=== PATIENT | male | born 1960 ===

== ENCOUNTER 2018-07-15 10:20 | Inpatient (IN) ==
[~2018-07-15 10:20] MED LIST: Adenosine 90 MG/30 ML MLS IV ONE
[2018-07-15] MEDS ORDERED: Aspirin 81 MG TAB.CHEW PO ONE (10:30)
--- NOTE | 2018-07-15 10:32 | Emergency Department Note ---
Disposition Clinical Impression: Palpitations, NSTEMI (non-ST elevated myocardial infarction) Chest pain Qualifiers: Chest pain type: unspecified Qualified Code(s): R07.9 - Chest pain, unspecified Disposition: Admitted As Inpatient Condition: Fair Referrals: Alexa Chery APN [Primary Care Provider] - Time of Disposition: 13:17 Arrhythmia/Palpitations HPI - General Chief Complaint: ED Arrhythmia/Palpitations Stated Complaint: heart palpatation Time Seen by Provider: 07/15/18 10:29 Source: patient, EMS Mode of arrival: EMS Limitations: no limitations Nursing Notes Reviewed: Yes Vital Signs Reviewed: Yes - History of Present Illness HPI Narrative: Patient is a 57-year-old male presenting with chest pain. Patient with known history of hypertension, hyperlipidemia, SVT, currently on propranolol. Patient was seen in the emergency department yesterday found to be in SVT, received a dose of adenosine and converted to normal sinus rhythm. Patient was discharged home. After his arrival home, he began to have pain in the middle of his chest with radiation into the right jaw and arm. He describes the pain in his chest to be a tightness. He also has associated shortness of breath with this. Patient notes that the pain has been constant since last night. He was unable to sleep as he was up all night with palpitations as well, took his pulse and it was 160 bpm. Pain continued into this morning, he did call EMS, states that just prior to arrival of EMS, his palpitations stopped. Per EMS report, patient was found to be in normal sinus rhythm on their arrival. He was given 1 nitroglycerin for the pain in his chest which has continued. He states that the pain slightly decreased. He generally has palpitations and mild discomfort when he goes into SVT, however he states that this pain is different. No history of left heart catheter or PA. No nausea, vomiting, lightheadedness or dizziness. No abdominal pain. - Related Data Home Medications Medication Instructions Recorded Confirmed Propranolol HCl 40 mg PO DAILY 07/18/17 07/18/17 Tramadol HCl [Ultram] 50 mg PO QID PRN 07/18/17 07/18/17 Previous Rx's Medication Instructions Recorded OxyCODONE Immed Rel [Roxicodone 5 5 mg PO Q6HR PRN 7 Days #30 tablet 07/19/17 MG] Azithromycin [Azithromycin 6-Tab 250 mg PO PER PKG DI #6 tab 02/07/18 Pack] GuaiFENesin/Dextromethorphan 5 ml PO Q6HR PRN #120 syrup 02/07/18 [Robitussin/DM] Allergies Allergy/AdvReac Type Severity Reaction Status Date / Time Amoxicillin Allergy Rash Verified 02/07/18 17:19 clindamycin Allergy Hives Verified 02/07/18 17:19 Penicillins Allergy Hives Verified 02/07/18 17:19 prednisone Allergy Itching Verified 02/07/18 17:19 All systems ED: reviewed and negative except as stated. Review of Systems: As Per HPI Constitutional: Denies: fever, chills, weakness, weight change ENT ED: Denies: ear pain, throat pain, dental pain, hearing loss, epistaxis, congestion, dysphagia Cardiovascular: Reports: chest pain, palpitations, dyspnea on exertion. Denies: syncope Respiratory: Denies: cough, dyspnea, wheezes Gastrointestinal: Denies: abdominal pain, nausea, vomiting Genitourinary: Denies: urgency, dysuria Musculoskeletal: Denies: back pain Integumentary: Denies: rash Neurological: Denies: headache, weakness, confusion Endocrine: Denies: fatigue Past Medical History - Past Medical History Attestation: Yes The following information was validated with the patient. Source: patient Medical history: Reports: hyperlipidemia, hypertension, SVT, other Psychiatric history: Reports: no psych history - Social History Smoking Status: Current every day smoker Smokeless Tobacco Status: No Alcohol use: Reports: none Drug use: Reports: none Physical Exam - General Limitations: no limitations General appearance: alert, in no apparent distress - Head Head exam: atraumatic, normocephalic, normal inspection - Eye Eye exam: Present: normal appearance, PERRL, EOMI - ENT ENT exam: normal exam, normal oropharynx, mucous membranes moist - Neck Neck exam: Present: normal inspection, full ROM, trachea midline - Chest Chest inspection: Present: normal inspection, symmetric chest wall rise - Respiratory Respiratory exam: Present: normal lung sounds bilaterally - Cardiovascular Cardiovascular exam: Present: regular rate, normal rhythm, normal heart sounds - Abdominal Exam Abdominal exam: Present: soft, Non-Tender. Absent: tenderness, distention, guarding, rebound, rigidity - Extremities Exam Extremities exam: Present: normal inspection, full ROM. Absent: tenderness, pedal edema - Expanded Lower Extremity Exam Neurovascular/Tendon exam: Absent: motor deficit, sensory deficit, tendon deficit - Back Exam Back exam: Present: normal inspection, full ROM. Absent: tenderness - Neurological Exam Neurological exam: Present: alert, oriented X3, CN II-XII intact - Psychiatric Psychiatric exam: Present: normal affect - Skin Skin exam: Present: warm. Absent: rash Course Vital Signs Temperature 98.1 F 07/15/18 10:22 Pulse Rate 71 07/15/18 10:22 Respiratory Rate 16 07/15/18 10:22 Blood Pressure 114/70 07/15/18 10:22 O2 Sat by Pulse Oximetry 98 07/15/18 10:22 Temperature 98.1 F 07/15/18 10:22 Pulse Rate 77 07/15/18 13:12 Respiratory Rate 16 07/15/18 13:12 Blood Pressure 109/64 07/15/18 13:12 O2 Sat by Pulse Oximetry 99 07/15/18 13:12 Oxygen Delivery Oxygen Delivery Room Air Arrhythmia/Palpitations - [facility] Narrative Medical decision making narrative: Patient is a 57-year-old male presenting with chest pain or palpitations. On arrival, patient is in normal sinus rhythm, no acute distress, converted prior to arrival. Was given fluids prior to arrival. Currently patient has been given 1 nitroglycerin bring his pain from a 6 down to a 3. EKG was performed at time of arrival which was a ventricular rate of 71, with new T-wave inversion and 2, 3, aVF as well as V5 and V6. Was called the troponin was minimally elevated at 22, without this time that cardiology consult was called at. At 1231, patient states that he started to have palpitations with repeat EKG performed which showed SVT with ventricular rate of 169. Patient states that he coughed, and converted himself, when I went back into the room, regular rhythm at 86 bpm. I spoke with Dr. Elaine Guzman at 1245, patient will be started on low-dose heparin, [place] time, patient had artery received aspirin, patient was also started on nitroglycerin drip. Patient has remained stable. Further blood work is unremarkable. Patient will be admitted for NSTEMI. Nurse practitioner, for Dr. Guzman, came down to evaluate the patient, left heart catheter will be performed today. - Medical Records Medical records reviewed: Yes I reviewed the patient's medical records. - Lab Data Lab results reviewed: Yes I reviewed the patient's lab results. Result diagrams: 07/15/18 12:55 07/15/18 11:01 Lab Results 07/15/18 07/15/18 07/15/18 Range/Units 11:01 11:01 12:55 WBC 13.2 H 13.5 H (4.3-11.1) K/mcL RBC 3.84 L 3.82 L (4.19-5.50) M/mcL Hgb 12.4 L D 12.1 L (12.9-16.9) g/dL Hct 36.3 L 35.9 L (37.5-50.1) % MCV 94.5 94.0 (83.0-100.0) fL MCH 32.3 31.7 (28.0-33.3) pg MCHC 34.2 33.7 (31.6-35.5) g/dL RDW 13.1 13.0 (11.5-14.5) % Plt Count 159 147 (140-400) K/mcL MPV 10.0 10.2 (9.4-12.4) fL Immature Gran % 0.3 (0-4) % Seg Neutrophils % 75.9 % Lymphocytes % 15.9 % Monocytes % 7.6 % Eosinophils % 0.1 % Basophils % 0.2 % Neutrophils # 10.1 H (1.6-8.9) K/mcL Lymphocytes # 2.1 (0.6-4.6) K/mcL Monocytes # 1.0 (0.0-1.3) K/mcL Eosinophils # 0.0 (0.0-0.6) K/mcL Basophils # 0.0 (0.0-0.2) K/mcL Sodium 138 (136-145) mEq/L Potassium 4.3 (3.5-5.1) mEq/L Chloride 105 (98-107) mEq/L Carbon Dioxide 29 (23-29) mEq/L BUN 13 (6-20) mg/dL Creatinine 0.80 (0.70-1.30) mg/dL Est GFR ( Amer) > 60 (> 60) Est GFR (Non-Af Amer) > 60 (> 60) BUN/Creatinine Ratio 16 (6-26) Glucose 109 H (70-105) mg/dL Calculated Osmolality 287 (280-300) Calcium 8.9 (8.6-10.3) mg/dL Troponin I 22.99 H* (< 0.04) ng/mL - Radiology Data Radiology results reviewed: Yes I reviewed the patient's radiology results. Chest X-Ray 07/15/18 10:30 IMPRESSION: 1. Mild prominence of the pulmonary vasculature suggestive of interstitial edema. D/ / Marilyn Díaz MD / Marilyn Díaz MD Interpreting Provider: Marilyn Díaz MD - EKG Data EKG attestation: Yes I reviewed and interpreted this EKG. EKG results narrative: EKG performed at 04/01 ventricular rate of 71, regular rhythm, normal axis, no ST segment elevation or depression, there is T wave inversion in leads 2, 3, aVF, V5 and V6, T-wave inversion is new since EKG that was performed on 07/14/2018. EKG performed at 1231 ventricular rate of 169, regular rhythm, normal axis, narrow complex, appears to be SVT. When compared to previous EKG there are: changes noted S.Radha.Mickey - Nandini Situation: Demographics, MOA Background: Presenting Complaint, Relevant PMH, Meds, & Allergies Assessment: Vital Signs, Course and respsone to treatment, Exam Concerns, Patient/Family Expectation, Pertinant Lab Results, Outstanding Labs Recommendation: Barrier(s) to disposition, Recommendation based on pending studies, treatments, or consults Nandini Report Given to: Dr. Dwayne Delatorre Repor Time: 13:17 (accepted) Heart Score - Score History: Moderately Suspicious EKG: Non Specific repolarisation Disturbance Age: 45-65 Risk Factors: 1-2 risk factors
--- NOTE | 2018-07-15 10:36 | Emergency Department Note ---
Disposition Clinical Impression: Chest pain, Palpitations, NSTEMI (non-ST elevated myocardial infarction) Disposition: Admitted As Inpatient Condition: Fair General Adult HPI - General Chief complaint: ED Arrhythmia/Palpitations Stated complaint: heart palpatation Time Seen by Provider: 07/15/18 10:29 Source: patient, EMS Mode of arrival: EMS Limitations: no limitations - History of Present Illness Pain Scale: 10 - Related Data Home Medications Medication Instructions Recorded Confirmed Propranolol HCl 40 mg PO DAILY 07/18/17 07/18/17 Tramadol HCl [Ultram] 50 mg PO QID PRN 07/18/17 07/18/17 Previous Rx's Medication Instructions Recorded OxyCODONE Immed Rel [Roxicodone 5 5 mg PO Q6HR PRN 7 Days #30 tablet 07/19/17 MG] Azithromycin [Azithromycin 6-Tab 250 mg PO PER PKG DI #6 tab 02/07/18 Pack] GuaiFENesin/Dextromethorphan 5 ml PO Q6HR PRN #120 syrup 02/07/18 [Robitussin/DM] Allergies Allergy/AdvReac Type Severity Reaction Status Date / Time Amoxicillin Allergy Rash Verified 02/07/18 17:19 clindamycin Allergy Hives Verified 02/07/18 17:19 Penicillins Allergy Hives Verified 02/07/18 17:19 prednisone Allergy Itching Verified 02/07/18 17:19 Past Medical History - Past Medical History Medical history: Reports: SVT, other Psychiatric history: Reports: no psych history - Social History Smoking Status: Current every day smoker Smokeless Tobacco Status: No Alcohol use: Reports: none Drug use: Reports: none Physical Exam - General Limitations: no limitations General appearance: alert, in no apparent distress Course Vital Signs Temperature 98.1 F 07/15/18 10:22 Pulse Rate 71 07/15/18 10:22 Respiratory Rate 16 07/15/18 10:22 Blood Pressure 114/70 07/15/18 10:22 O2 Sat by Pulse Oximetry 98 07/15/18 10:22 Temperature 98.1 F 07/15/18 10:22 Pulse Rate 79 07/15/18 13:47 Respiratory Rate 18 07/15/18 13:47 Blood Pressure 121/69 07/15/18 13:47 O2 Sat by Pulse Oximetry 98 07/15/18 13:47 Oxygen Delivery Oxygen Delivery Room Air Medical Decision Making - Lab Data Result diagrams: 07/15/18 12:55 07/15/18 11:01 Lab Results 07/15/18 07/15/18 07/15/18 Range/Units 11:01 11:01 12:55 WBC 13.2 H 13.5 H (4.3-11.1) K/mcL RBC 3.84 L 3.82 L (4.19-5.50) M/mcL Hgb 12.4 L D 12.1 L (12.9-16.9) g/dL Hct 36.3 L 35.9 L (37.5-50.1) % MCV 94.5 94.0 (83.0-100.0) fL MCH 32.3 31.7 (28.0-33.3) pg MCHC 34.2 33.7 (31.6-35.5) g/dL RDW 13.1 13.0 (11.5-14.5) % Plt Count 159 147 (140-400) K/mcL MPV 10.0 10.2 (9.4-12.4) fL Immature Gran % 0.3 (0-4) % Seg Neutrophils % 75.9 % Lymphocytes % 15.9 % Monocytes % 7.6 % Eosinophils % 0.1 % Basophils % 0.2 % Neutrophils # 10.1 H (1.6-8.9) K/mcL Lymphocytes # 2.1 (0.6-4.6) K/mcL Monocytes # 1.0 (0.0-1.3) K/mcL Eosinophils # 0.0 (0.0-0.6) K/mcL Basophils # 0.0 (0.0-0.2) K/mcL PT (9.4-12.1) Seconds INR Heparin Anti-Xa, Unfract (0.30-0.70) IU/mL Sodium 138 (136-145) mEq/L Potassium 4.3 (3.5-5.1) mEq/L Chloride 105 (98-107) mEq/L Carbon Dioxide 29 (23-29) mEq/L BUN 13 (6-20) mg/dL Creatinine 0.80 (0.70-1.30) mg/dL Est GFR ( Amer) > 60 (> 60) Est GFR (Non-Af Amer) > 60 (> 60) BUN/Creatinine Ratio 16 (6-26) Glucose 109 H (70-105) mg/dL Calculated Osmolality 287 (280-300) Calcium 8.9 (8.6-10.3) mg/dL Magnesium 2.1 (1.6-2.6) mg/dL Troponin I 22.99 H* (< 0.04) ng/mL 07/15/18 Range/Units 12:55 WBC (4.3-11.1) K/mcL RBC (4.19-5.50) M/mcL Hgb (12.9-16.9) g/dL Hct (37.5-50.1) % MCV (83.0-100.0) fL MCH (28.0-33.3) pg MCHC (31.6-35.5) g/dL RDW (11.5-14.5) % Plt Count (140-400) K/mcL MPV (9.4-12.4) fL Immature Gran % (0-4) % Seg Neutrophils % % Lymphocytes % % Monocytes % % Eosinophils % % Basophils % % Neutrophils # (1.6-8.9) K/mcL Lymphocytes # (0.6-4.6) K/mcL Monocytes # (0.0-1.3) K/mcL Eosinophils # (0.0-0.6) K/mcL Basophils # (0.0-0.2) K/mcL PT 12.2 H (9.4-12.1) Seconds INR 1.1 Heparin Anti-Xa, Unfract 0.00 L (0.30-0.70) IU/mL Sodium (136-145) mEq/L Potassium (3.5-5.1) mEq/L Chloride (98-107) mEq/L Carbon Dioxide (23-29) mEq/L BUN (6-20) mg/dL Creatinine (0.70-1.30) mg/dL Est GFR ( Amer) (> 60) Est GFR (Non-Af Amer) (> 60) BUN/Creatinine Ratio (6-26) Glucose (70-105) mg/dL Calculated Osmolality (280-300) Calcium (8.6-10.3) mg/dL Magnesium (1.6-2.6) mg/dL Troponin I (< 0.04) ng/mL Critical Care Time Critical Care Time: Yes Total Critical Care Time: 40 Attestation: Critical care performed: Time is exclusive of separately billable procedures. Time includes: direct patient care, patient reassessment, coordination of patient care, interpretation of data (laboratory data, radiology data, and respiratory data), review of patient's medical records, medical consultation and documentation of patient care. Procedures included in critical care time: Procedures excluded from critical care time: Attestation Statement - Attestation Attestation: I examined this patient and my medical decision-making was reviewed with the [facility] Physician. I agree with the documented findings, disposition and treatment plan as described except to the extent set forth below. Patient presents to the emergency department with a chief complaint of chest and jaw discomfort. Patient began expressing discomfort last night. It was accomp anied by palpitations and a high heart rate. He states he sat on the side of the bed all night and discomfort. His heart rate was in the 160s. Patient states he converted out of SVT just prior to EMS arriving this morning. Patient was seen here yesterday for the palpitations, but he was not having chest discomfort at that time. He has an appointment to see Dr. Rick Guzman. Patient states he has a history of SVT over the past 10 years. It is getting worse. On examination he is in no acute distress. His heart regular rate and rhythm. Heart rate in the 70s. Plan. Cardiac workup. His EKG shows new inferior and lateral T-wave inversions. Aspirin and admission for further cardiac workup. Troponin is 22. Patient was discussed with cardiology. He received aspirin, heparin, but went up. Patient evaluated in the department cardiology who will take him to [employer] [facility]. Patient has had 2 episodes of SVT that have Chest X-Ray 07/15/18 10:30 IMPRESSION: 1. Mild prominence of the pulmonary vasculature suggestive of interstitial edema. D/ / 07/15/2018 11:21:06 Marilyn Díaz MD / michael Interpreting Provider: Marilyn Díaz MD spontaneously converted.
[2018-07-15 11:14] LABS: Basophils % 0.2 %; Eosinophils % 0.1 %; Hematocrit 36.3 % (37.5-50.1); Hemoglobin 12.4 g/dL (12.9-16.9); Immature Granulocytes % 0.3 % (0-4); Lymphocytes # 2.1 K/mcL (0.6-4.6); Lymphocytes % 15.9 %; Mean Corpuscular HGB Conc 34.2 g/dL (31.6-35.5); Mean Corpuscular Hemoglobin 32.3 pg (28.0-33.3); Mean Corpuscular Volume 94.5 fL (83.0-100.0); Monocytes % 7.6 %; Neutrophils # 10.1 K/mcL (1.6-8.9); Platelet Count 159 K/mcL (140-400); Red Blood Count 3.84 M/mcL (4.19-5.50); Red Cell Distribution Width 13.1 % (11.5-14.5); Segmented Neutrophils % 75.9 %
[2018-07-15 11:34] LABS: BUN/Creatinine Ratio 16 (6-26); Blood Urea Nitrogen 13 mg/dL (6-20); Calcium 8.9 mg/dL (8.6-10.3); Carbon Dioxide 29 mEq/L (23-29); Chloride 105 mEq/L (98-107); Glucose 109 mg/dL (70-105); Osmolality,Calculated 287 (280-300); Potassium 4.3 mEq/L (3.5-5.1); Sodium 138 mEq/L (136-145); eGFR For Non-African Americans > 60 (> 60)
[2018-07-15 11:44] LABS: Troponin I 22.99 ng/mL (< 0.04)
[2018-07-15] MEDS ORDERED: Nitroglycerin 25 MG/250 ML INFUS..BTL IVC SCH (12:30)
[2018-07-15] MEDS ORDERED: *HR* Heparin 5,000 UNIT/ML VIAL IVP PRN ×2 (12:48)
[2018-07-15] MEDS ORDERED: *HR* Ticagrelor 90 MG TABLET PO ONE (12:48)
[2018-07-15] MEDS ORDERED: *HR* Heparin 5,000 UNIT/ML VIAL IVP ONE (12:48)
[2018-07-15] MEDS ORDERED: Heparin 25,000 UNIT/500 ML D5W 25,000 UNIT/500 ML BAG IVC SCH (13:00)
[2018-07-15 13:08] LABS: Hematocrit 35.9 % (37.5-50.1); Hemoglobin 12.1 g/dL (12.9-16.9); Mean Corpuscular HGB Conc 33.7 g/dL (31.6-35.5); Mean Corpuscular Hemoglobin 31.7 pg (28.0-33.3); Mean Platelet Volume 10.2 fL (9.4-12.4); Platelet Count 147 K/mcL (140-400); Red Blood Count 3.82 M/mcL (4.19-5.50)
--- NOTE | 2018-07-15 13:14 | Cardiology History & Physical ---
Addendum entered and electronically signed by Elaine Guzman MD 07/15/18 13:29: I have personally performed a face to face evaluation on this patient. I have reviewed and agree with the care plan. History and Exam by me shows: Pt with ongoing chest discomfort and elevated troponin to 22.99. Will proceed with emergent LHC and possible PCI. All risks/benefits discussed with patient by me. Agreeable to proceed. 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 Original Note: Date of Encounter: 07/15/18 Time of Encounter: 13:09 Assessment and Plan (1) NSTEMI (non-ST elevated myocardial infarction) Current Visit: Yes Status: Acute Constant chest pain since yesterday radiating to neck/right jaw/left hand numbness associated with diaphoresis and dyspnea. Troponin 22.99. CP currently 09/13. ECG on presentation SR with inferior and lateral ischemic changes. Brilinta load given. Started on heparin and nitro gtt. Add Statin and BB. TTE to evaluate structure and function. Recommend LHC. R/B/A discussed. Pt agrees to proceed. LHC today. Discussed and reviewed with Dr. Elaine Guzman. The assessment and plan as outlined above was discussed with the patient and/or family members who expressed understanding and agreement. All questions were answered. 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 Presented to office then ED 07/14 in SVT, was d/c'd home after it broke. Presented today with NSTEMI as above. Went into SVT, broke with coughing. Will switch Propanolol to Metoprolol. Will await further recs tomorrow from EP, Dr. Rick Guzman. History of Present Illness Chief complaint: Chest pain, NSTEMI, SVT/AVNRT HPI: Mr. Renae is a 57 year old male with PMH of HTN, prior tobacco abuse present to ED for chest pain. He was seen in the ED yesterday for SVT. It broke and he was d/c'd home. He states after he got home he began having chest pain that has been constant, radiating to his neck and right jaw, right hand numbness, asso ciated dyspnea and mild diaphoresis. Once he arrived ECG was SR. He began having palpitations and was in SVT that broke with coughing. Troponin 22.99. Admitted to cardiology service as NSTEMI. Pt reports current chest pain/jaw pain is 4/10. Lying flat in no distress. 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 Otherwise, rare PACs and PVCs. No significant bradycardia or pauses Past Med Surg Social Fam HX - Past Medical History Medical history: hyperlipidemia, hypertension, SVT, other Additional medical history: neuropathy Psychiatric history: no psych history - Past Surgical History Additional surgical history: neck - Social History Smoking Status: Current every day smoker Smokeless Tobacco Status: No Alcohol use: none Drug use: none Medications and Allergies Propranolol HCl 40 mg PO DAILY 07/18/17 [History] Tramadol HCl [Ultram] 50 mg PO QID PRN 07/18/17 [History] OxyCODONE Immed Rel [Roxicodone 5 MG] 5 mg PO Q6HR PRN 7 Days #30 tablet 07/19/17 [Rx] Azithromycin [Azithromycin 6-Tab Pack] 250 mg PO PER PKG DI #6 tab 02/07/18 [Rx] GuaiFENesin/Dextromethorphan [Robitussin/DM] 5 ml PO Q6HR PRN #120 syrup 02/07/18 [Rx] Allergy/AdvReac Type Severity Reaction Status Date / Time Amoxicillin Allergy Rash Verified 02/07/18 17:19 clindamycin Allergy Hives Verified 02/07/18 17:19 Penicillins Allergy Hives Verified 02/07/18 17:19 prednisone Allergy Itching Verified 02/07/18 17:19 All Systems Review: The remainder of the systems were reviewed and are negative - Cardiovascular Cardiovascular: as per HPI, chest pain at rest, chest pain with exertion, diaphoresis, dyspnea at rest, dyspnea on exertion, radiating jaw, neck or arm pain, palpitations - Respiratory Respiratory: dyspnea Physical Examination Vital Signs, Last 4 Hours Temp Pulse Resp BP Pulse Ox 07/15/18 12:34 82 18 115/92 96 07/15/18 11:45 68 15 117/68 96 07/15/18 10:22 98.1 F 71 16 114/70 98 Vital Signs Temp Pulse Resp BP Pulse Ox 07/15/18 13:12 77 16 109/64 99 07/15/18 12:34 82 18 115/92 96 07/15/18 11:45 68 15 117/68 96 07/15/18 10:22 98.1 F 71 16 114/70 98 Intake and Output 07/14/18 07/15/18 07/15/18 23:59 07:59 15:59 Other: Weight 93.894 kg Patient Weight 07/15/18 23:59 Weight 93.894 kg General: Conversant, No Apparent Distress HEENT: Atraumatic, Normocephaly, Mucus Membranes Moist Neck: No JVD, Normal carotid pulses Cardiac: Reg Rate and Rhythm, Normal S1 and S2, No Murmur Lungs: Normal Breath Sounds, No Wheeze, Rales, Rhonchi Neuro: Alert and responsive, No focal deficits noted Abdomen: Soft, Non-Tender Skin: No rashes noted on visualized skin Musculoskeletal: No Chest Wall Tenderness Extremities: No Clubbing, No Cyanosis, No Edema, Normal Pulses Results 07/15/18 11:01 07/15/18 11:01 Lab Results 07/15/18 07/15/18 11:01 11:01 WBC 13.2 H Hgb 12.4 L D Hct 36.3 L Plt Count 159 Sodium 138 Potassium 4.3 Chloride 105 Carbon Dioxide 29 BUN 13 Creatinine 0.80 Glucose 109 H Calcium 8.9 Troponin I 22.99 H* Short CBC 07/15/18 07/15/18 Range/Units 12:55 11:01 WBC 13.5 H 13.2 H (4.3-11.1) K/mcL Hgb 12.1 L 12.4 L D (12.9-16.9) g/dL Hct 35.9 L 36.3 L (37.5-50.1) % Plt Count 147 159 (140-400) K/mcL Neutrophils # 10.1 H (1.6-8.9) K/mcL BMP 07/15/18 Range/Units 11:01 Sodium 138 (136-145) mEq/L Potassium 4.3 (3.5-5.1) mEq/L Chloride 105 (98-107) mEq/L Carbon Dioxide 29 (23-29) mEq/L BUN 13 (6-20) mg/dL Creatinine 0.80 (0.70-1.30) mg/dL Glucose 109 H (70-105) mg/dL Calcium 8.9 (8.6-10.3) mg/dL Cardiac Enzymes 07/15/18 Range/Units 11:01 Troponin I 22.99 H* (< 0.04) ng/mL Impressions Chest X-Ray 07/15/18 10:30 IMPRESSION: 1. Mild prominence of the pulmonary vasculature suggestive of interstitial edema. D/ / 07/15/2018 11:21:06 Marilyn Díaz MD / bcarter Interpreting Provider: Marilyn Díaz MD Active Medications Heparin Sodium (Porcine) (Heparin) 4,000 unit IVP Q6HR PRN PRN Reason: SEE COMMENTS Stop: 01/14/19 12:49 Heparin Sodium (Porcine) (Heparin) 2,000 unit IVP Q6H PRN PRN Reason: SEE COMMENTS Stop: 01/14/19 12:49 Nitroglycerin (Nitroglycerin Premix 25 Mg/250 Ml) 25 mg in 250 mls @ 3 mls/hr IVC .[facility]H [facility]; Protocol Stop: 01/14/19 12:31 Heparin Sodium/Dextrose (Heparin 25,000 Unit/500 Ml D5w) 25,000 unit in 500 mls @ 22.535 mls/hr IVC .[id number] [facility]; Protocol Stop: 01/14/19 13:01 - EKG Interpretation EKG results cardiology: personally reviewed (Initial SR, then SVT/AVNRT rate 169)
[2018-07-15 13:16] LABS: INR 1.1; Prothrombin Time 12.2 Seconds (9.4-12.1)
[2018-07-15] MEDS ORDERED: Heparin 1,000 UNITS/500 mL 500 ML ONE (13:22)
[2018-07-15] MEDS ORDERED: *HR* Heparin 10,000 UNIT/10 ML VIAL ONE (13:22)
[2018-07-15] MEDS ORDERED: Nitroglycerin 1,000 MCG/10 ML VIAL IV ONE (13:22)
[2018-07-15] MEDS ORDERED: 0.9 % Sodium Chloride 1,000 ML ONE (13:22)
[2018-07-15] MEDS ORDERED: ISOVUE-370 200 ML INFUS..BTL ONE ×2 (13:22→15:25)
[2018-07-15] MEDS ORDERED: Acetaminophen 325 MG TABLET PO PRN (13:29)
--- NOTE | 2018-07-15 13:33 | Pre-Sedation Evaluation ---
Pre-sedation evaluation - Pre-sedation checklist Date of procedure: 07/15/18 Procedure: [facility] Recent Vitals: Last Vital Signs Temp 98.1 F 07/15/18 10:22 Pulse 77 07/15/18 13:12 Resp 16 07/15/18 13:12 BP 109/64 07/15/18 13:12 Pulse Ox 99 07/15/18 13:12 H&P (including ROS) documented in medical record: Yes Previous reaction to sedatives/anesthetics: No Dietary Status: No solid food in preceding 4 hrs and no liquid in preceding 2 hrs Airway Assessment: Patient can open mouth completely, TMJ function normal, Micrognathia (under-bite, receding chin) absent, Neck with adequate range of motion Dentition: No loose teeth or bridges Possible difficult airway: No ASA Classification *see protocol: CLASS II-Mild systemic disease Cardiac Registry (Cardio Only) - Functional Capacity Functional Capacity: < 4 METS - Clincal Frailty Scale Clinical Frailty Scale: Managing Well
[2018-07-15] MEDS ORDERED: Naloxone 0.4 MG/ML INJ IVP PRN (13:44)
[2018-07-15] MEDS ORDERED: traMADol 50 MG TABLET PO PRN (13:44)
[2018-07-15] MEDS ORDERED: Dextrose Gel 15 GM/37.5 ML TUBE PO PRN ×2 (13:46)
[2018-07-15] MEDS ORDERED: D5% in Water 1,000 ML IVC PRN (13:46)
[2018-07-15] MEDS ORDERED: *HR* Dextrose 50 % in Water (Syg) 50 ML SYRINGE IVP PRN (13:46)
[2018-07-15 13:49] LABS: Magnesium 2.1 mg/dL (1.6-2.6)
[2018-07-15] MEDS ORDERED: 0.9 % Sodium Chloride 500 ML ONE (13:53)
[2018-07-15] MEDS ORDERED: *HR* FentaNYL (PF) 100 MCG/2 ML VIAL ONE (13:53)
[2018-07-15] MEDS ORDERED: *HR* Midazolam HCl 2 MG/2 ML VIAL ONE ×2 (13:53→14:32)
[2018-07-15 14:03] LABS: Chol/HDL Ratio 3.7 (0-4.9); Cholesterol 153 mg/dL (< 200); HDL Cholesterol 41 mg/dL (40-59); LDL Cholesterol,Calculated 104 mg/dL (0-99); Triglycerides 41 mg/dL (< 150)
[2018-07-15] MEDS ORDERED: *HR* Bivalirudin 250 MG VIAL IVC ONE ×2 (14:18→14:53)
--- NOTE | 2018-07-15 14:32 | Internal Med History&Physical ---
Date of Encounter: 07/15/18 Time of Encounter: 14:28 Internal Medicine - H&P: HPI Chief complaint: chest and jaw discomfort Admitted From: Home Plans for Post Hospital Care: Home History of present illness: Mr. Renae is a 57 year old male PMH of SVT. Patient reports yesterday morning he started having palpitations and decided to come to the ED and ws given some medications and the palpitations resolved and he went home. But he reports that after leaving the hospital, he go home at around 4pm yesterday and started having restro-sternal pressure like10/10 chest pain, radiating to his jaw and left side of the neck, he also reports shortness of breath associated with the chest pain. He reports not being able to sleep overnight and decided to come to the ED today morning. He denies nausea, vomiting, but reports palpitation. In the ED patient was found to have NSTEMI. Past Med Surg Social Fam HX - Past Medical History Medical history: hyperlipidemia, hypertension, SVT, other Additional medical history: neuropathy Psychiatric history: no psych history - Past Surgical History Additional surgical history: neck - Social History Smoking Status: Current every day smoker Smokeless Tobacco Status: No Alcohol use: none Drug use: none Internal Medicine - H&P: Meds Propranolol HCl 40 mg PO DAILY 07/18/17 [History] Tramadol HCl [Ultram] 50 mg PO QID PRN 07/18/17 [History] OxyCODONE Immed Rel [Roxicodone 5 MG] 5 mg PO Q6HR PRN 7 Days #30 tablet 07/19/17 [Rx] Azithromycin [Azithromycin 6-Tab Pack] 250 mg PO PER PKG DI #6 tab 02/07/18 [Rx] GuaiFENesin/Dextromethorphan [Robitussin/DM] 5 ml PO Q6HR PRN #120 syrup 02/07/18 [Rx] Allergy/AdvReac Type Severity Reaction Status Date / Time Amoxicillin Allergy Rash Verified 02/07/18 17:19 clindamycin Allergy Hives Verified 02/07/18 17:19 Penicillins Allergy Hives Verified 02/07/18 17:19 prednisone Allergy Itching Verified 02/07/18 17:19 All Systems PM: A 10-system review of systems was performed and is negative for pertinent findings except as documented above in the HPI. - Constitutional Constitutional: no chills, no fever(s), no weakness - EENT Eyes: no change in vision, no irritation Nose, mouth and throat: no change in voice - Cardiovascular Cardiovascular ROS IM: chest pain, dyspnea, palpitations, no lightheadedness, no paroxysmal nocturnal dyspnea - Respiratory Respiratory: no cough, no dyspnea, no change in phlegm color - Gastrointestinal Gastrointestinal: no abdominal pain, no nausea, no vomiting - Genitourinary Genitourinary ROS male: no dysuria, no nocturia, no urinary frequency, no urinary incontinence, no urinary urgency - Musculoskeletal Musculoskeletal ROS IM: no muscle cramps - Integumentary Integumentary IM: no sores - Neurological Neurological ROS: no headache(s) - Psychiatric Psychiatric: no anxiety, no irritability - Endocrine Endocrine IM: no cold intolerance, no excessive sweating - Hematologic/Lymphatic Hematologic/Lymphatic: no lymphadenopathy - Allergic/Immunologic Allergic/Immunologic: no GI upset with certain foods - Constitutional Vitals: Temp Pulse Resp BP Pulse Ox 98.1 F 79 18 121/69 98 07/15/18 10:22 07/15/18 13:47 07/15/18 13:47 07/15/18 13:47 07/15/18 13:47 Exam: Vitals: Reviewed General: Alert and oriented x4. In mild distress due to chest pain Skin: Normal color, no rash, no lesions. HEENT: EOM, pupils equal, round and reactive. Cardiovascular: RRR, normal S1 & S2, no rubs, murmurs or gallops. Lungs: CTA b/l, no wheezes or crackles. Abdomen: Obese, Soft, non-tender, no rigidity. Extremities: No deformity, no edema or tenderness, no joint swelling or clubbing. Neurological: Normal cognition and motor skills. Rest of the physical exam is non contributory Internal Med - H&P Results - Labs CBC & Chem 7: 07/15/18 12:55 07/15/18 11:01 Labs: Short CBC 07/15/18 07/15/18 Range/Units 11:01 12:55 WBC 13.2 H 13.5 H (4.3-11.1) K/mcL Hgb 12.4 L D 12.1 L (12.9-16.9) g/dL Hct 36.3 L 35.9 L (37.5-50.1) % Plt Count 159 147 (140-400) K/mcL Neutrophils # 10.1 H (1.6-8.9) K/mcL BMP 07/15/18 11:01 Sodium 138 Potassium 4.3 Chloride 105 Carbon Dioxide 29 BUN 13 Creatinine 0.80 Glucose 109 H Calcium 8.9 Cardiac Enzymes 07/15/18 Range/Units 11:01 Troponin I 22.99 H* (< 0.04) ng/mL - Impressions ITS Impressions Chest X-Ray 07/15/18 10:30 IMPRESSION: 1. Mild prominence of the pulmonary vasculature suggestive of interstitial edema. D/ / 07/15/2018 11:21:06 Marilyn Díaz MD / michael Interpreting Provider: Marilyn Díaz MD - Diagnostic Studies Chest x-ray Status: image reviewed by me (mild Pulmonary congestion ) - Assessment and plan (1) NSTEMI (non-ST elevated myocardial infarction) Current Visit: Yes Status: Acute Assessment and plan: patient presented to the ED due to chest discomfort. has some runs of svtss Plan loaded with brillinta started on a bb, statin heparin drip aspirin 325mg/PO x1 followed by aspirin 81mg/PO daily cardiolgy has been consulted, patient will be taken for [facility]. On nitro drip for chest pain NPO accu-checks Q6HRs, plus lispro low dose sliding scale lipid panel (2) DVT prophylaxis Current Visit: Yes Status: Acute Assessment and plan: patient started on a heparin drip due to NSTEMI (3) Leukocytosis Current Visit: Yes Status: Acute Assessment and plan: Possible reactive. No signs of infection. will monitor Qualifiers: Leukocytosis type: unspecified Qualified Code(s): D72.829 - Elevated white blood cell count, unspecified (4) SVT (supraventricular tachycardia) Current Visit: No Status: Acute Assessment and plan: patient with a Hx of SVT. continue metoprolol mg/PO BID. Cardiology recommendations appreciated. - Time Spent With Patient Total time spent is greater than 50% in coordination of care (as documented) at patient's floor/unit and/or counseling patient: Greater than 35 minutes (45) - VTE Reasons for not Prescribing Prophylaxis: Not indicated-Anticoagulated or INR therapeutic
[2018-07-15] MEDS ORDERED: Nitroglycerin 0.4 MG TAB.SUBL SL PRN (15:25)
--- NOTE | 2018-07-15 15:25 | Invasive Diagnostic Lab Proc ---
Name: Jam Renae Date of Study: 07/15/2018 Date: 1960 Ht: 66.9in Medical Record#: [id number] Age: 57 Wt: 207.23lb Gender: Male BSA: 2.05 Order #: [id number] BMI: 32.53 Physicians Procedure Physician: Elaine Guzman MD, FACC Referring MD: Alexa Chery APN Referring MD: Staff Name Position Time In LopezDarinel RN Monitor 01:49 PM Lo Sung RN Plumber Helper 01:49 PM Judy Russell RN Plumber Helper 01:49 PM Rafa Molina RT (R) Scrub 01:50 PM Indications Indication Non-Stemi Procedures Performed Procedure L HRT ARTERY/VENTRICLE ANGIO PRQ CARD EDUARD STENT W/ANGIO 1 VSL IV Doppler BLD Flow 1st Vessel PRQ CARD EDUARD STENT W/ANGIO 1 VSL PRQ CARD EDUARD STENT W/ANGIO 1 VSL Pre-Procedure Checklist Informed consent is complete signed and on chart. H&P is on chart. ID band is on and ID verified with patient. Patient NPO for procedure The procedure was described for the patient and questions were answered. Blood Pressure: 109/64 ECG is on chart. Rhythm: NSR Plan of Care Patient will tolerate the procedure without complications. Adequate level of comfort will be maintained. Hemodynamics will remain stable Patient will recover from procedure without complications. Respiratory function will be maintained. Cardiac rhythm will remain stable. Patient temperature will be maintained. Patient and/or family have verbalized understanding of the procedure. Patient Education Chief Complaint/Reason for Test: Cardiac Cath Developmental Category: Adult (18-64 years) Developmentally Appropriate for Age: Yes Learning Barriers: None Education Needs: Procedure Education Method: Verbal Information Taught: Cardiac Cath Educational Evaluation: Able to repeat information Intravenous Access Time IV Size Location DC'd Fluid/Drip Rate Units RN 01:27 PM 18g 1 1/4" Patent On Arrival Lt Antecubital 0.9NaCl 25 ml/hr Lo Sung RN Allergies Penicillins prednisone clindamycin Amoxicillin Vital Signs Time BP (mmHg) HR (bpm) O2 Sat. RR (bpm) LOC 01:28 PM 109 / 64 77 99 % 16 5 = Fully awake and oriented or at pre-proc level 01:50 PM / % 5 = Fully awake and oriented or at pre-proc level 01:50 PM / % 4 = Oriented but drowsy 02:06 PM / % 4 = Oriented but drowsy 02:21 PM / % 4 = Oriented but drowsy 02:36 PM / % 5 = Fully awake and oriented or at pre-proc level 02:51 PM / % 4 = Oriented but drowsy 01:53 PM 135 / 80 % 01:58 PM 126 / 78 77 98 % 33 02:03 PM 115 / 76 80 95 % 8 02:08 PM 121 / 74 81 96 % 21 02:13 PM 117 / 75 83 95 % 21 02:18 PM 126 / 74 78 96 % 20 02:23 PM 123 / 80 80 98 % 34 02:28 PM 127 / 77 80 97 % 30 02:33 PM 126 / 77 79 99 % 12 02:38 PM 122 / 74 81 95 % 17 02:43 PM 127 / 80 79 100 % 20 02:48 PM 101 / 69 83 96 % 02:54 PM 118 / 83 80 96 % 24 02:58 PM 116 / 75 81 99 % 20 03:03 PM 114 / 82 82 96 % 30 Procedural Medications Time Medication Dose Units Method Given By 01:50 PM Oxygen 2 L/min nasal cannula Lo Sung RN 01:59 PM Versed 2 mg Intravenous Lo Sung RN 01:59 PM Fentanyl 50 mcg Intravenous Lo Sung RN 02:01 PM Lidocaine 2% 19 ml Subcutaneous Elaine Guzman MD, [facility] 02:15 PM Angiomax 0.75mg/kg bolus: 14 ml Intravenous Judy Russell RN 02:15 PM Angiomax 1.75mg/kg/hr: 33 ml/hr Intravenous Judy Russell RN 02:23 PM Nitroglycerin 200 mcg Intracoronary Elaine Guzman MD, FACC 02:29 PM 90mg Adenosine in 90 ml 0.9 NS 790 ml/hr Intravenous Judy Russell RN 02:35 PM Versed 1 mg Intravenous Judy Russell RN 02:35 PM Fentanyl 25 mcg Intravenous Judy Russell RN 02:47 PM Nitroglycerin 200 mcg Intracoronary Elaine Guzman MD, FACC 02:59 PM Nitroglycerin 200 mcg Intracoronary Elaine Guzman MD, FAC ASA Classification: CLASS II- Mild systemic disease (i.e. well-controlled diabetes, hypertension, asthma, cigarette smoking) Emergent Procedure: ASA score is assumed Va Score Preprocedure Postprocedure Activity 2- Moves 4 extremities sustained head lift Activity 2- Moves 4 extremities sustained head lift Circulation 2- SBP +/= 20 points of pre-anesthetic level Circulation 2- SBP +/= 20 points of pre-anesthetic level Consciousness 2- Awake and alert oriented x 3 Consciousness 2- Awake and alert oriented x 3 O2 Saturation 2- Able to maintain O2 satruation of 92% on room air O2 Saturation 2- Able to maintain O2 satruation of 92% on room air Respiratory 2- Able to deep breathe and cough well Respiratory 2- Able to deep breathe and cough well Total Score 10 Total Score 10 Contrast Agent: Isovue Diagnostic Contrast: 257 ml Total Contrast: 257 ml Fluoro Dose: 48762 mGy Procedure Log Time Note Enter By 01:26 PM CathStat 01:49 PM Pt arrived to laborer/grade check 2 at 13:47 csmith 01:49 PM Darinel Lopez RN Position: Monitor Time in: 13:49 csmith 01:49 PM Lo Sung RN Position: Plumber Helper Time in: 13:49 csmith 01:50 PM uJdy Russell RN Position: Plumber Helper Time in: 13:49 csmith 01:50 PM Rafa Molina (R) Position: Scrub Time in: 13:50 csmith 01:50 PM Patient charges- Angio tray pack, Navilyst 3mm J, Pulse Oximetry and ACIST tubing and transducer csmith 01:50 PM Hair removed from procedure site in emergency department using clippers. Bilateral groin prepped with Chloraprep by Rafa Molina (R), then patient was draped. Skin intact. csmith 01:50 PM Physician arrived 13:50 csmith 01:50 PM ASA Class CLASS II- Mild systemic disease (i.e. well-controlled diabetes, hypertension, asthma, cigarette smoking) csmith 01:50 PM Meet and greet completed csmith 01:50 PM Sign in performed according to hospital policy. Informed consent was obtained. csmith 01:50 PM Procedure start 13:50 csmith 01:50 PM Case Start 01:50 PM Time: 13:50 Oxygen on at 2 L/min per nasal cannula by Lo Sung RN csmith 01:50 PM NTG and heparin gtt stopped on arrival csmith 01:50 PM Time: 13:50 Patient comfortable and pain free: Yes csmith 01:50 PM Time: 13:50LOC: 5 = Fully awake and oriented or at pre-proc level csmith 01:52 PM Vitals capture started with the following parameters, Patient=Adult, Interval=5 min, Initial Zplqkiwy=473 mmHg, Deflation Rate=5 mmHg, Cuff placed on Right Arm 01:53 PM JETO=559/80 mmhg 01:57 PM Recorded ECG: HR=79 Condition=Condition 1 01:58 PM HR=77 bpm, BDLG=279/78 mmhg, SpO2=98.0 %, Resp=33 B/min, EtCO2=36 mmHg, Comment=sr 01:58 PM Pressure channel 1 zeroed. 01:59 PM Time: 13:59 Versed 2 mg Intravenous Given by Lo Sung RN csmith :59 PM Time: 13:59 Fentanyl 50 mcg Intravenous Given by Lo Sung RN csmith 02:01 PM Time out was performed according to hospital policy. Conscious sedation and anesthesia was achieved (see medication log with in this report above) csmith 02:01 PM Clinical Presentation: Non-STEMI csmith 02:02 PM Time: 14:01 19 ml Lidocaine 2% to right groin Subcutaneous Given by Elaine Guzman MD, [facility] csmith 02:03 PM HR=80 bpm, ZCUU=689/76 mmhg, SpO2=95.0 %, Resp=8 B/min, EtCO2=32 mmHg, Comment=sr 02:03 PM Access obtained by percutaneous puncture. 6Fr 11cm Terumo [place] sheath placed in right Femoral artery. [id number] csmith 02:04 PM 0.035 145cm Navilyst 3mmJ wire [id number] csmith 02:04 PM Recorded Pressure: Ao, QG=149, Condition=Condition 1 (Aorta) Ao 113/77/93 02:04 PM 5Fr FL 4 catheter inserted over the wire DNC csmith 02:05 PM LCA angiography performed in multiple views. csmith 02:05 PM Time: 13:50 Patient comfortable and pain free: Yes csmith 02:06 PM Time: 13:50LOC: 4 = Oriented but drowsy csmith 02:06 PM Inflation device was opened. csmith 02:07 PM Catheter removed csmith 02:08 PM HR=81 bpm, PUFY=903/74 mmhg, SpO2=96.0 %, Resp=21 B/min, EtCO2=32 mmHg, Comment=sr 02:08 PM 5Fr FR 4 catheter inserted over the wire [facility] csmith 02:09 PM RCA angiography performed in multiple views. csmith 02:09 PM Recorded Pressure: Ao, HR=80, Condition=Condition 1 (Aorta) Ao 104/74/88 02:09 PM Catheter removed csmith 02:10 PM 5Fr Pigtail catheter inserted over the wire [facility] csmith 02:10 PM Catheter crossed the aortic valve and was selectively placed in the left ventricle. Pressures recorded on pullback for left heart catheterization. csmith 02:10 PM Pressure channel 1 zeroed. 02:11 PM Recorded Pressure: LV, HR=82, Condition=Condition 1 (Left Ventricle) LV 114/2/18 02:11 PM Bolus angiogram of left Ventricle complete: 8 ml/sec for a total of 24 mls csmith 02:11 PM Recorded Pressure: LV, Ao, HR=81, Condition=Condition 1 (Left Ventricle) LV 112/39/49, (Aorta) Ao 99/65/82 02:12 PM Catheter removed csmith 02:12 PM Coronary Dominance: right csmith 02:13 PM HR=83 bpm, MACQ=006/75 mmhg, SpO2=95.0 %, Resp=21 B/min, EtCO2=33 mmHg, Comment=sr 02:14 PM PCI lesion in Mid Circumflex. Pre Stenosis: 99 Pre MG Flow: 3: Complete and Brisk Flow/Perfusion csmith 02:15 PM Time: 14:15 Angiomax 0.75mg/kg bolus: 14 ml Intravenous Given by Judy Russell RN csmith 02:15 PM Time: 14:15 Angiomax 1.75mg/kg/hr: 33 ml/hr Intravenous Given by Judy Russell RN East pump csmith 02:15 PM 6Fr XB LAD 3.5 Cordis guide catheter was used to cannulate the PCI vessel successfully. reused? No csmith 02:16 PM .014 PT Graphix 182cm guide wire across target lesion- successful. reused? No csmith 02:18 PM 2.5 mm x 8 mm Emerge Monorail balloon across target lesion- successful. reused? No csmith 02:18 PM Balloon inflated @ 8 mary lou for 15 seconds csmith 02:18 PM HR=78 bpm, PSRD=614/74 mmhg, SpO2=96.0 %, Resp=20 B/min, EtCO2=35 mmHg, Comment=sr 02:18 PM Balloon catheter removed intact. csmith 02:19 PM 3.5mm x 12mm Synergy drug-eluting stent across target lesion- successful Lot #[id number] csmith 02:20 PM Time: 14:05 Patient comfortable and pain free: Yes csmith 02:21 PM Time: 14:06LOC: 4 = Oriented but drowsy csmith 02:21 PM Stent deployed @ 12 mary lou for 30 seconds csmith 02:21 PM Stent balloon reinflated @ 14 mary lou for 10 seconds csmith 02:23 PM Stent delivery system removed intact. csmith 02:23 PM HR=80 bpm, VLXF=946/80 mmhg, SpO2=98.0 %, Resp=34 B/min, EtCO2=36 mmHg, Comment=sr 02:23 PM Time: 14:23 Nitroglycerin 200 mcg Intracoronary Given by Elaine Guzman MD, [facility] csmith 02:24 PM Lesion found in Mid LAD. Pre Stenosis: 50 Pre MG Flow: 3: Complete and Brisk Flow/Perfusion csmith 02:26 PM Asist FFR Catheter advanced to target lesion. csmith 02:28 PM HR=80 bpm, GBAF=631/77 mmhg, SpO2=97.0 %, Resp=30 B/min, EtCO2=39 mmHg, Comment=sr 02:28 PM FFR Measurement: 0.86 before adenosine mid LAD csmith 02:28 PM Recorded Pressure: Ao, PCW, HR=80, Condition=Condition 1 (Aorta) Ao 107/64/83, (Pulmonary Capillary Wedge) PCW 93/95/70 02:29 PM Time: 14:29 90mg Adenosine in 90 ml 0.9 NS 790 ml/hr Intravenous Given by Judy Russell RN East pump csmith 02:29 PM adenosine stopped csmith 02:30 PM FFR Measurement: 0.75 w/ffr mid LAD csmith 02:33 PM .014 [employer] 190cm guide wire across target lesion- successful. reused? No 2nd diag, pt graphix to mid lad csmith 02:33 PM HR=79 bpm, PVSD=775/77 mmhg, SpO2=99.0 %, Resp=12 B/min, EtCO2=38 mmHg, Comment=sr 02:33 PM 2.0 mm x 8 mm Mini Trek Rx balloon across target lesion- successful. reused? No csmith 02:34 PM Balloon inflated @ 8 mary lou for 15 seconds and then removed csmith 02:36 PM Time: 14:20 Patient comfortable and pain free: Yes csmith 02:36 PM Time: 14:21LOC: 4 = Oriented but drowsy csmith 02:38 PM HR=81 bpm, IJSC=286/74 mmhg, SpO2=95.0 %, Resp=17 B/min, EtCO2=38 mmHg, Comment=sr 02:38 PM Time: 14:35 Versed 1 mg Intravenous Given by Judy Russell RN csmith 02:39 PM Time: 14:35 Fentanyl 50 mcg Intravenous Given by Judy Russell RN csmith 02:42 PM 2.0 mm x 9 mm Mozec Rx balloon across target lesion- successful. reused? No across 2nd diag csmith 02:43 PM HR=79 bpm, DMCS=134/80 mmhg, AhZ0=906.0 %, Resp=20 B/min, EtCO2=34 mmHg, Comment=sr 02:43 PM balloon removed undeployed csmith 02:44 PM 2.25mm x 16mm Synergy drug-eluting stent across target lesion- successful Lot #[id number] to mid lad csmith 02:45 PM 2nd diag wire removed csmith 02:46 PM Stent deployed @ 12 mary lou for 30 seconds csmith 02:47 PM Time: 14:47 Nitroglycerin 200 mcg Intracoronary Given by Elaine Guzman MD, [facility] csmith 02:48 PM HR=83 bpm, RICX=293/69 mmhg, SpO2=96.0 %, EtCO2=33 mmHg, Comment=sr 02:51 PM Time: 14:36 Patient comfortable and pain free: Yes csmith 02:51 PM Lesion found in Mid RCA. Pre Stenosis: 95 Pre MG Flow: 3: Complete and Brisk Flow/Perfusion csmith 02:51 PM Time: 14:36LOC: 5 = Fully awake and oriented or at pre-proc level csmith 02:51 PM catheter and wires removed csmith 02:51 PM 6Fr JR 4 Runway guide catheter was used to cannulate the PCI vessel successfully. reused? No to RCA csmith 02:53 PM PT graphix reinserted into RCA csmith 02:54 PM HR=80 bpm, FUXK=982/83 mmhg, SpO2=96.0 %, Resp=24 B/min, EtCO2=34 mmHg, Comment=sr 02:57 PM 3.0mm x 32mm Synergy drug-eluting stent across target lesion- successful Lot #[id number] csmith 02:58 PM Stent deployed @ 12 mary lou for 30 seconds csmith 02:58 PM HR=81 bpm, YWPY=883/75 mmhg, SpO2=99.0 %, Resp=20 B/min, EtCO2=30 mmHg, Comment=sr 02:59 PM Stent balloon reinflated @ 16 mary lou for 20 seconds csmith 02:59 PM Stent delivery system removed intact. csmith 02:59 PM Time: 14:59 Nitroglycerin 200 mcg Intracoronary Given by Elaine Guzman MD, FACC csmith 03:00 PM guide catheter and wire removed csmith 03:01 PM Bolus angiogram of right Femoral complete: 4 ml/sec for a total of 7 mls csmith 03:03 PM Procedure completed at 15:03 07/15/2018 csmith 03:03 PM Did you address MG flow and Dominance? Yes csmith 03:03 PM HR=82 bpm, HCGC=231/82 mmhg, SpO2=96.0 %, Resp=30 B/min, Comment=sr 03:04 PM Sign out completed: Radiation Dose 1232 mGy, 60801 cGy/cm2 Fluoro Time: 12.8 Isovue 370 - 200ml contrast 257 ml given by Elaine Guzman MD, [facility]. Complications: None. The patient was discharged out of the cardiac cath technologist in stable condition. Cardiac Rehab Consult needed: YesConfirmed administered medications: Yes csmith 03:04 PM Sheath left in place to be pulled on floor/holding area csmith 03:04 PM Estimated Blood Loss: minimal csmith 03:04 PM Post ECG NSR csmith 03:05 PM Post Blood Pressure 114/82 csmith 03:05 PM 15:05 Post Pulses Bilateral DP 2+ csmith 03:05 PM Information taught PCI and Cardiac Cath csmith 03:05 PM Education needs Responsibilities of Patient in Care csmith 03:05 PM Learning barriers :None csmith 03:05 PM Education Methods Verbal csmith 03:05 PM Education evaluation Able to repeat information csmith 03:06 PM Time: 14:51LOC: 4 = Oriented but drowsy csmith 03:10 PM Site status No bleeding/hematoma - Rt Groin as reported by Rafa Molina RT (R) at 15:10 csmith 03:10 PM Opsite applied csmith 03:10 PM Family placed in consult room. csmith 03:10 PM Plavix, Effient or Brilinta given No - received in ED prior to arrival to CCL csmith 03:18 PM Report given to Marilyn LOZANO Pt taken [facility] ICU [facility] Complications Complication None Hemodynamics Pressures Site Systolic/A Wave Diastolic/V Wave Mean AO 113 77 93 AO 104 74 88 LV 114 2 18 LV 112 39 49 AO 99 65 82 AO 107 64 83 PCW 93 95 70 Post Procedure Information Blood Pressure: 114/82 mmHg Rhythm: NSR Post procedural instructions were given Closure Device Time Device Success/Fail Manual Compression Site Checks Time Location Status Staff Sheath In? Note 03:10 PM Rt Groin No bleeding/hematoma Rafa Molina RT (R) Pulses Time Site Pre-Procedure Post-Procedure Note 3:05:00 PM Bilateral DP 2+ Updated by Darinel Lopez RN on 07/15/2018 3:19:20 PM electronically signed on 07/15/2018 3:19:51 PM with status of Final
[2018-07-15] MEDS: D5% in 0.9% NACL 1,000 ML IVC SCH (16:28)
[2018-07-15] MEDS: Insulin LISPRO 300 UNITS/3 ML VIAL SQ SCH (17:57)
[2018-07-15] MEDS ORDERED: *HR* Atropine Sulfate 1 MG/10 ML SYRINGE ONE (20:35)
[2018-07-15] MEDS: *HR* Ticagrelor 90 MG TABLET PO SCH (20:39)
[2018-07-15] MEDS ORDERED: Gabapentin 300 MG CAPSULE PO SCH (21:00)
[2018-07-16] MEDS: Insulin LISPRO 300 UNITS/3 ML VIAL SQ SCH ×3 (00:16→12:12)
[2018-07-16 04:44] LABS: Basophils % 0.1 %; Eosinophils % 0.1 %; Hematocrit 33.1 % (37.5-50.1); Hemoglobin 11.3 g/dL (12.9-16.9); Immature Granulocytes % 0.3 % (0-4); Lymphocytes # 2.2 K/mcL (0.6-4.6); Mean Corpuscular HGB Conc 34.1 g/dL (31.6-35.5); Mean Corpuscular Volume 93.8 fL (83.0-100.0); Mean Platelet Volume 10.9 fL (9.4-12.4); Monocytes % 9.2 %; Neutrophils # 7.3 K/mcL (1.6-8.9); Platelet Count 132 K/mcL (140-400); Red Blood Count 3.53 M/mcL (4.19-5.50); Red Cell Distribution Width 13.2 % (11.5-14.5); Segmented Neutrophils % 69.3 %
[2018-07-16 05:03] LABS: BUN/Creatinine Ratio 18 (6-26); Blood Urea Nitrogen 13 mg/dL (6-20); Calcium 8.9 mg/dL (8.6-10.3); Carbon Dioxide 26 mEq/L (23-29); Chloride 106 mEq/L (98-107); Glucose 109 mg/dL (70-105); Osmolality,Calculated 281 (280-300); Potassium 3.7 mEq/L (3.5-5.1); Sodium 135 mEq/L (136-145); eGFR For Non-African Americans > 60 (> 60)
[2018-07-16 05:04] LABS: Magnesium 1.9 mg/dL (1.6-2.6); Phosphorous 2.4 mg/dL (2.7-4.5)
[2018-07-16] MEDS: *HR* Ticagrelor 90 MG TABLET PO SCH ×2 (08:50→20:15)
[2018-07-16] MEDS ORDERED: Aspirin 81 MG TAB.CHEW PO SCH (09:00)
--- NOTE | 2018-07-16 10:53 | Cardiology Progress Note ---
Date of Encounter: 07/16/18 Time of Encounter: 10:45 Assessment and Plan (1) NSTEMI (non-ST elevated myocardial infarction) Current Visit: Yes Status: Acute Per Cardiology: Peak troponin greater than 73. LHC: Lesion Findings/Interventions * Left Main Coronary Artery The LMCA is angiographically free of disease. * Left Anterior Descending There is a 14 mm long, 60% stenosis in the Mid LAD- FFR 0.75. The lesion has a MG flow of 3, has no thrombus present, and is a bifurcation lesion. An intervention was performed on the Mid LAD with a final stenosis of 0%. There were no lesion complications. The final MG flow was 3. * Circumflex There is a 10 mm long, 99% stenosis in the Mid Circumflex. The lesion has a MG flow of 2 and has no thrombus present. An intervention was performed on the Mid Circumflex with a final stenosis of 0%. There were no lesion complications. The final MG flow was 3. There is a 40% stenosis in the Distal Circumflex. * Right Coronary Artery There is a 30 mm long, 95% stenosis in the Mid RCA. The lesion has a MG flow of 3 and has no thrombus present. An intervention was performed on the Mid RCA with a final stenosis of 95%. There were no lesion complications. The final MG flow was 3. Chest pain-free. On aspirin, Brilinta, statin, BB. Will DC ACEI for now to allow for titration of calcium channel david for SVT. If preserved on 50% on LHC. Echo pending. Discussed with Dr. Rick Guzman, will step down today. 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 Presented to office then ED 07/14 in SVT, was d/c'd home after it broke. Presented today with NSTEMI as above. Went into SVT, broke with coughing. Had SVT birefly again today resolved with bearing down per RN. On Lopressor 25 mg by mouth twice a day and Cardizem 30 mg by mouth every [address] Rick Guzman, will increase Cardizem to 60 mg by mouth every 6 hours for now. SBP 100's, stopping ACEI for now. Discussion w patient/family: The assessment and plan as outlined above was discussed with the patient and/or family members who expressed understanding and agreement. All questions were answered. Thank you for involving us in the care of your patient. Please call with any questions. Subjective Principal diagnosis: NSTEMI Interval history: Denies any chest pain. Reports episode this morning with palpitations resolved with bearing down. He denies any short of breath. Denies any concerns with right groin site. Denies any bleeding or blood loss. Objective Vital Signs, Last 4 Hours Temp Pulse Resp BP Pulse Ox 07/16/18 08:00 78 19 102/63 95 07/16/18 07:00 97.9 F General: Conversant, No Apparent Distress HEENT: Atraumatic, Normocephaly, Mucus Membranes Moist Neck: No JVD, Normal carotid pulses Cardiac: Reg Rate and Rhythm, Normal S1 and S2, No Murmur Lungs: Normal Breath Sounds, No Wheeze, Rales, Rhonchi Neuro: Alert and responsive, No focal deficits noted Abdomen: Soft, Non-Tender Skin: No rashes noted on visualized skin, Other (Right groin site dry and intact, no bleeding, no hematoma, very mild ecchymosis, right PT and DP pulses 2+ palpable) Musculoskeletal: No Chest Wall Tenderness Extremities: No Clubbing, No Cyanosis, No Edema, Normal Pulses Results 07/16/18 04:15 07/16/18 04:15 Lab Results Laboratory Tests 07/15/18 07/15/18 07/16/18 11:01 16:50 04:15 Hgb 11.3 L Hct 33.1 L Potassium Creatinine Est GFR (Non-Af Amer) Magnesium Troponin I 22.99 H* > 73.00 H* LDL Cholesterol, Calc 104 H 07/16/18 07/16/18 07/16/18 04:15 04:15 04:15 Hgb Hct Potassium 3.7 Creatinine 0.71 Est GFR (Non-Af Amer) > 60 Magnesium 1.9 Troponin I 44.76 H* LDL Cholesterol, Calc ITS Impressions Chest X-Ray 07/15/18 10:30 IMPRESSION: 1. Mild prominence of the pulmonary vasculature suggestive of interstitial edema. D/ / 07/15/2018 11:21:06 Marilyn Díaz MD / michael Interpreting Provider: Marilyn Díaz MD Active Medications Acetaminophen (Tylenol) 650 mg PO Q6HR PRN PRN Reason: Fever Stop: 01/14/19 13:30 Aspirin (Aspirin) 81 mg PO DAILY [facility] Stop: 01/15/19 09:01 Last Admin: 07/16/18 08:50 Dose: 81 mg Atorvastatin Calcium (Lipitor) 80 mg PO HS [facility] Stop: 01/14/19 21:01 Last Admin: 07/15/18 20:39 Dose: 80 mg Cyclobenzaprine HCl (Flexeril) 10 mg PO TID PRN PRN Reason: Muscle Spasm Stop: 01/14/19 15:01 Dextrose/Water (Dextrose 50% (Syg)) 25 ml IVP AD PRN PRN Reason: Hypoglycemia Stop: 01/14/19 13:47 Diltiazem HCl (Cardizem) 60 mg PO Q6HR [facility] Stop: 01/15/19 12:01 Gabapentin (Neurontin) 300 mg PO HS [facility] Stop: 01/14/19 21:01 Last Admin: 07/15/18 20:39 Dose: 300 mg Glucagon (Glucagen) 1 mg IM ONCE PRN PRN Reason: Hypoglycemia Stop: 01/14/19 13:47 Glucose (Gluctose) 15 gm PO ONCE PRN PRN Reason: Hypoglycemia Stop: 01/14/19 13:47 Glucose (Gluctose) 30 gm PO ONCE PRN PRN Reason: Hypoglycemia Stop: 01/14/19 13:47 Dextrose/Sodium Chloride (D5% And 0.9% Nacl 1000 Ml) 1,000 mls @ 50 mls/hr IVC .Q20H ST[facility]ART Stop: 01/14/19 14:01 Last Admin: 07/15/18 16:28 Dose: 50 mls/hr Dextrose (Dextrose 5%) 1,000 mls @ 100 mls/hr IVC .Q10H PRN PRN Reason: HYPOGLYCEMIA Stop: 01/14/19 13:47 Insulin Human Lispro (Humalog) 0 units SQ Q6HR STEWART; Protocol Stop: 01/14/19 18:01 Last Admin: 07/16/18 05:34 Dose: Not Given Metoprolol Tartrate (Lopressor) 25 mg PO BID [facility] Stop: 01/14/19 13:31 Last Admin: 07/16/18 08:50 Dose: 25 mg Naloxone HCl (Narcan) 0.4 mg IVP Q2MIN PRN PRN Reason: SEE COMMENTS Stop: 01/14/19 13:45 Nitroglycerin (Nitroglycerin) 0.4 mg SL Q5MIN PRN PRN Reason: Chest Pain Stop: 01/14/19 15:26 Ticagrelor (Brilinta) 90 mg PO BID [facility] Stop: 01/14/19 21:01 Last Admin: 07/16/18 08:50 Dose: 90 mg Tramadol HCl (Ultram) 50 mg PO Q6HR PRN PRN Reason: Moderate Pain Stop: 01/14/19 13:45 - EKG Interpretation EKG results cardiology: other (Average heart rate on telemetry 74, sinus rhythm, episode of SVT noted this morning) - VTE Reasons for not Prescribing Prophylaxis: Not indicated-Anticoagulated or INR therapeutic Consult Discharge Plan - Plan Referrals: Alexa Chery APN [Primary Care Provider] -
[2018-07-16] MEDS: D5% in 0.9% NACL 1,000 ML IVC SCH (12:13)
--- NOTE | 2018-07-16 12:51 | Internal Med Progress Note ---
Hospitalist Progress Note - Encounter Date of Encounter: 07/16/18 Time of Encounter: 12:48 - Subjective Interval History: I have seen and evaluated the patient at bedside. He denies palpitation, shortness of breath, or chest pain. Denies abdominal or back pain. - Exam Vitals: Temp Pulse Resp BP Pulse Ox 98.1 F 78 20 103/64 95 07/16/18 11:11 07/16/18 12:00 07/16/18 12:00 07/16/18 12:00 07/16/18 12:00 Exam: Vitals: Reviewed General: Alert and oriented x4. No acute distress. Cardiovascular: RRR, normal S1 & S2, no rubs, murmurs or gallops. Lungs: CTA b/l, no wheezes or crackles. Abdomen: Obese, Soft, non-tender, no rigidity. NABS in all 4 quadrants Extremities: No edema Neurological: Normal cognition Rest of the physical exam is non contributory - Assessment and Plan (1) NSTEMI (non-ST elevated myocardial infarction) Current Visit: Yes Status: Acute Assessment and Plan: s/p LHC: Triple-vessel coronary artery disease. Ejection fraction 55% Plan Continue metoprolol 25 mg by mouth twice a day, Ticagrelor 90mg/Po daily, plus aspirin 81mg/PO daily on atorvastatin 80mg/PO daily Nitro 0.4mg SubL Q5mins prn for chest pain telemetry monitoring (2) Leukocytosis Current Visit: Yes Status: Resolved (3) SVT (supraventricular tachycardia) Current Visit: No Status: Acute Assessment and Plan: Urology recommended to increased Cardizem to 60 mg by mouth every 6 hours. DVT Prophylaxis: Started on heparin subcutaneous twice a day for DVT prophylaxis. - Summary of Assessment and Plan Summary of Assessment and Plan: Patient to remain in the hospital due to NSTEMI. Hx of SVT rip optimize medications. potential discharge tomorrow - Time Spent with Patient Total time spent is greater than 50% in coordination of care (as documented) at patient's floor/unit and/or counseling patient: Greater than 35 minutes (40) Plan of Care Discussed with: patient (and the nurse) Internal Medicine: Result - Labs CBC & Chem 7: 07/16/18 04:15 07/16/18 04:15 Labs: Short CBC 07/15/18 07/16/18 Range/Units 12:55 04:15 WBC 13.5 H 10.6 (4.3-11.1) K/mcL Hgb 12.1 L 11.3 L (12.9-16.9) g/dL Hct 35.9 L 33.1 L (37.5-50.1) % Plt Count 147 132 L (140-400) K/mcL Neutrophils # 7.3 (1.6-8.9) K/mcL BMP 07/15/18 07/16/18 11:01 04:15 Sodium 138 135 L Potassium 4.3 3.7 Chloride 105 106 Carbon Dioxide 29 26 BUN 13 13 Creatinine 0.80 0.71 Glucose 109 H 109 H Calcium 8.9 8.9 Cardiac Enzymes 07/15/18 07/15/18 07/16/18 Range/Units 11:01 16:50 04:15 Troponin I 22.99 H* > 73.00 H* 44.76 H* (< 0.04) ng/mL - ABG Interpretation ABG results: PT/INR, D-dimer PT 12.2 Seconds (9.4-12.1) H 07/15/18 12:55 - VTE Reasons for not Prescribing Prophylaxis: Not indicated-Anticoagulated or INR therapeutic Consult Discharge Plan - Plan Referrals: Alexa Chery APN [Primary Care Provider] - (2) Leukocytosis Qualifiers: Leukocytosis type: unspecified Qualified Code(s): D72.829 - Elevated white blood cell count, unspecified
[2018-07-16] MEDS ORDERED: traMADol 50 MG TABLET PO PRN (12:57)
[2018-07-16] MEDS ORDERED: *HR* Dextrose 50 % in Water (Syg) 50 ML SYRINGE IVP PRN (12:57)
[2018-07-16] MEDS ORDERED: D5% in Water 1,000 ML IVC PRN (12:57)
[2018-07-16] MEDS ORDERED: Nitroglycerin 0.4 MG TAB.SUBL SL PRN (12:57)
[2018-07-16] MEDS ORDERED: Naloxone 0.4 MG/ML INJ IVP PRN (12:57)
[2018-07-16] MEDS ORDERED: D5% in 0.9% NACL 1,000 ML IVC SCH (12:57)
[2018-07-16] MEDS ORDERED: Dextrose Gel 15 GM/37.5 ML TUBE PO PRN ×2 (12:57)
[2018-07-16] MEDS ORDERED: Acetaminophen 325 MG TABLET PO PRN (12:57)
[2018-07-16] MEDS ORDERED: *HR* Heparin 5,000 UNIT/ML VIAL SQ SCH (18:00)
[2018-07-16] MEDS ORDERED: Gabapentin 300 MG CAPSULE PO SCH (21:00)
[2018-07-17] MEDS: *HR* Ticagrelor 90 MG TABLET PO SCH (07:36)
[2018-07-17] MEDS ORDERED: Aspirin 81 MG TAB.CHEW PO SCH (09:00)
--- NOTE | 2018-07-17 10:17 | Cardiology Progress Note ---
Date of Encounter: 07/17/18 Time of Encounter: 10:15 Assessment and Plan (1) NSTEMI (non-ST elevated myocardial infarction) Current Visit: Yes Status: Acute Per Cardiology: Peak troponin greater than 73. LHC: Lesion Findings/Interventions * Left Main Coronary Artery The LMCA is angiographically free of disease. * Left Anterior Descending There is a 14 mm long, 60% stenosis in the Mid LAD- FFR 0.75. The lesion has a MG flow of 3, has no thrombus present, and is a bifurcation lesion. An intervention was performed on the Mid LAD with a final stenosis of 0%. There were no lesion complications. The final MG flow was 3. * Circumflex There is a 10 mm long, 99% stenosis in the Mid Circumflex. The lesion has a MG flow of 2 and has no thrombus present. An intervention was performed on the Mid Circumflex with a final stenosis of 0%. There were no lesion complications. The final MG flow was 3. There is a 40% stenosis in the Distal Circumflex. * Right Coronary Artery There is a 30 mm long, 95% stenosis in the Mid RCA. The lesion has a MG flow of 3 and has no thrombus present. An intervention was performed on the Mid RCA with a final stenosis of 95%. There were no lesion complications. The final MG flow was 3. EF 50-55% on echo. Chest pain-free. On aspirin, Brilinta, statin, BB. Off ACEI for now to allow for titration of calcium channel david for SVT. Dual antiplatelet therapy reinforced. 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 Presented to office then ED 07/14 in SVT, was d/c'd home after it broke. Presented today with NSTEMI as above. Went into SVT, broke with coughing. Had SVT briefly again today resolved with bearing down per RN. Had another episode last night. On Lopressor 25 mg by mouth twice a day and Cardizem 60 mg by mouth every 6 hours-- will convert to Cardizem CD 240mg PO daily. SBP 100's. Discussion w patient/family: The assessment and plan as outlined above was discussed with the patient and/or family members who expressed understanding and agreement. All questions were answered. Thank you for involving us in the care of your patient. Please call with any questions. Subjective Principal diagnosis: NSTEMI Interval history: Denies any chest pain. Reports episode of palps last night again. He denies any short of breath. Denies any concerns with right groin site. Denies any bleeding or blood loss. Objective Vital Signs, Last 4 Hours Temp Pulse Resp BP Pulse Ox 07/17/18 07:33 98.6 F 65 18 101/64 96 General: Conversant, No Apparent Distress HEENT: Atraumatic, Normocephaly, Mucus Membranes Moist Neck: No JVD, Normal carotid pulses Cardiac: Reg Rate and Rhythm, Normal S1 and S2, No Murmur Lungs: Normal Breath Sounds, No Wheeze, Rales, Rhonchi Neuro: Alert and responsive, No focal deficits noted Abdomen: Soft, Non-Tender Skin: No rashes noted on visualized skin Musculoskeletal: No Chest Wall Tenderness Extremities: No Clubbing, No Cyanosis, No Edema, Normal Pulses Results 07/16/18 04:15 07/16/18 04:15 Impressions Echocardiogram 07/15/18 13:27 Impressions: LVEF 50-55%. Mild systolic dysfunction. The apical segment was not well visualized in all the views. Consider limited study with image enhancement. Mild concentric left ventricular hypertrophy. Moderate left ventricular diastolic dysfunction. Normal right ventricular structure and function. Unable to estimate RVSP due to lack of TR jet. No significant valvular dysfunction Left Ventricular Wall Motion: Rest Echo Findings The mid inferior, basal inferior septal, mid inferior lateral and basal inferior lateral maldonado were hypokinetic. The apex wall was not visualized. All other wall segments showed normal motion. Findings: Study Quality * Technically sub-optimal due to poor echocardiographic windows. ECG Findings * Normal sinus rhythm. Left Ventricle * LVEF 50-55%. * Mild concentric left ventricular hypertrophy. * Moderate left ventricular diastolic dysfunction. * Definity echo contrast was not used. Right Ventricle * Normal right ventricular structure and function. Left Atrium * Mildly dilated left atrium. Right Atrium * Normal right atrial size. Interatrial Septum * No evidence of PFO by color Doppler. Aortic Valve * Trileaflet aortic valve. * No aortic regurgitation. * No aortic stenosis. Mitral Valve * No mitral stenosis. * Trace mitral regurgitation. * Normal mitral valve structure. Tricuspid Valve * Trace tricuspid regurgitation. * No tricuspid stenosis. * Normal tricuspid valve structure. * Unable to estimate RVSP due to lack of TR jet. Pulmonic Valve * Pulmonic valve is not well visualized. Aorta * Normally sized aortic root. Pericardium * The pericardium appears normal. IVC * Normal IVC dimensions and inspiratory collapse. Pulmonary Artery * Normal visualized portions of the main pulmonary artery. Active Medications Acetaminophen (Tylenol) 650 mg PO Q6HR PRN PRN Reason: Fever Stop: 01/14/19 13:30 Aspirin (Aspirin) 81 mg PO DAILY [facility] Stop: 01/15/19 09:01 Last Admin: 07/17/18 07:36 Dose: 81 mg Atorvastatin Calcium (Lipitor) 80 mg PO HS [facility] Stop: 01/14/19 21:01 Last Admin: 07/16/18 20:15 Dose: 80 mg Cyclobenzaprine HCl (Flexeril) 10 mg PO TID PRN PRN Reason: Muscle Spasm Stop: 01/14/19 15:01 Dextrose/Water (Dextrose 50% (Syg)) 25 ml IVP AD PRN PRN Reason: Hypoglycemia Stop: 01/14/19 13:47 Diltiazem HCl (Cardizem) 60 mg PO Q6HR [facility] Stop: 01/15/19 12:01 Last Admin: 07/17/18 06:12 Dose: 60 mg Gabapentin (Neurontin) 300 mg PO HS [facility] Stop: 01/14/19 21:01 Last Admin: 07/16/18 20:15 Dose: 300 mg Glucagon (Glucagen) 1 mg IM ONCE PRN PRN Reason: Hypoglycemia Stop: 01/14/19 13:47 Glucose (Gluctose) 15 gm PO ONCE PRN PRN Reason: Hypoglycemia Stop: 01/14/19 13:47 Glucose (Gluctose) 30 gm PO ONCE PRN PRN Reason: Hypoglycemia Stop: 01/14/19 13:47 Dextrose/Sodium Chloride (D5% And 0.9% Nacl 1000 Ml) 1,000 mls @ 50 mls/hr IVC .Q20H [facility] Stop: 01/14/19 14:01 Dextrose (Dextrose 5%) 1,000 mls @ 100 mls/hr IVC .Q10H PRN PRN Reason: HYPOGLYCEMIA Stop: 01/14/19 13:47 Metoprolol Tartrate (Lopressor) 25 mg PO BID [facility] Stop: 01/14/19 13:31 Last Admin: 07/17/18 07:36 Dose: 25 mg Naloxone HCl (Narcan) 0.4 mg IVP Q2MIN PRN PRN Reason: SEE COMMENTS Stop: 01/14/19 13:45 Nitroglycerin (Nitroglycerin) 0.4 mg SL Q5MIN PRN PRN Reason: Chest Pain Stop: 01/14/19 15:26 Ticagrelor (Brilinta) 90 mg PO BID [facility] Stop: 01/14/19 21:01 Last Admin: 07/17/18 07:36 Dose: 90 mg Tramadol HCl (Ultram) 50 mg PO Q6HR PRN PRN Reason: Moderate Pain Stop: 01/14/19 13:45 - Imaging and Cardiology Echo: report reviewed - VTE Reasons for not Prescribing Prophylaxis: Not indicated-Anticoagulated or INR therapeutic Consult Discharge Plan - Plan Referrals: Alexa Chery APN [Primary Care Provider] -
[2018-07-17] MEDS ORDERED: Diltiazem CD (24hr) 240 MG CAPSULE PO SCH (10:30)
[2018-07-17 11:00] VITALS: BP 105/60
--- NOTE | 2018-07-17 11:03 | Discharge Summary ---
- NOTES TO OUTPATIENT PROVIDER Notes to Outpatient Provider: Follow-up with cardiology within 1-2 weeks of hospital discharge. Date of Encounter: 07/17/18 Time of Encounter: 10:59 - Discharge Diagnosis (1) NSTEMI (non-ST elevated myocardial infarction) Priority: Primary Status: Resolved (2) Leukocytosis Priority: Secondary Status: Resolved Qualifiers: Leukocytosis type: unspecified Qualified Code(s): D72.829 - Elevated white blood cell count, unspecified (3) SVT (supraventricular tachycardia) Priority: Secondary Status: Acute Hospital course: Mr. Renae is a 57 year old male PMH of SVT. Patient reports the day prior to presenting to the ED he started having palpitations and decided to come to the ED and was given some medications and the palpitations resolved and he went home. He returned to the ED the following day due to restro-sternal pressure like10/10 chest pain, radiating to his jaw and left side of the neck, he also reports shortness of breath associated with the chest pain. patient was diagnosed with a NSTEMI, and SVTs. Patient underwent a LHC: triple vessel disease. patient had suscessful PTCA/drug-elunting stent placement in the mid rca, mid lad and mid circumflex. For SVTs cardiology started patient on cardizem 240mg/PO daily. patient acute symptoms have resolved following the LHC. patient is being disaharged home on dual antiplatelet therapy, a statin and a bb. recommended to follow up with cardiology as outpatient. - Time Spent with Patient Total time spent providing and/or coordinating discharge services: Greater than 30 minutes (40) - Discharge Medications Prescriptions: Nitroglycerin 0.4 mg SL Q5MIN PRN 30 Days #60 tab.subl PRN Reason: Chest Pain Aspirin 81 mg PO DAILY 30 Days #30 tab.chew Atorvastatin [Lipitor] 80 mg PO HS 30 Days #30 tablet Diltiazem CD (24hr) [Cardizem CD] 240 mg PO DAILY 30 Days #30 cap.er.24h Metoprolol [Lopressor] 25 mg PO BID 30 Days #60 tablet Ticagrelor [Brilinta] 90 mg PO BID 30 Days #60 tablet Home Medications: Aspirin 81 mg PO DAILY 30 Days #30 tab.chew 07/17/18 [Rx] Atorvastatin [Lipitor] 80 mg PO HS 30 Days #30 tablet 07/17/18 [Rx] Diltiazem CD (24hr) [Cardizem CD] 240 mg PO DAILY 30 Days #30 cap.er.24h 07/17/18 [Rx] Gabapentin [Neurontin] 800 mg PO TID 07/17/18 [History] Metoprolol [Lopressor] 25 mg PO BID 30 Days #60 tablet 07/17/18 [Rx] Nitroglycerin 0.4 mg SL Q5MIN PRN 30 Days #60 tab.subl 07/17/18 [Rx] Ticagrelor [Brilinta] 90 mg PO BID 30 Days #60 tablet 07/17/18 [Rx] raNITIdine HCl [Ranitidine HCl] 150 mg PO DAILY 07/17/18 [History] Allergies/Adverse Reactions: Allergy/AdvReac Type Severity Reaction Status Date / Time Amoxicillin Allergy Rash Verified 02/07/18 17:19 clindamycin Allergy Hives Verified 02/07/18 17:19 Penicillins Allergy Hives Verified 02/07/18 17:19 prednisone Allergy Itching Verified 02/07/18 17:19 Date of admission: 07/15/18 13:21 Primary care physician: Alexa Chery APN Consults: 07/15/18 13:15 Consult to Cardiology [CONS] Stat Comment: Consulting Provider: Cardiology Liset Reason for Consult: NSTEMI Time Notified: 13:15 Call Completed: Yes 07/15/18 15:25 Consult to Cardiac Rehabilitation-Phase1 [CONS] Routine Comment: Reason for Consult: AMI Call Completed: Yes - Constitutional Vitals: Temp Pulse Resp BP Pulse Ox 98.6 F 65 18 101/64 96 07/17/18 07:33 07/17/18 07:33 07/17/18 07:33 07/17/18 07:33 07/17/18 07:33 Exam: Vitals: Reviewed General: Alert and oriented x4. No acute distress. Cardiovascular: RRR, normal S1 & S2, no rubs, murmurs or gallops. Lungs: CTA b/l, no wheezes or crackles. Abdomen: Obese, Soft, non-tender, no rigidity. NABS in all 4 quadrants Extremities: No edema Neurological: Normal cognition Rest of the physical exam is non contributory - Patient Status Disposition: Home, Self-Care Condition: Good Functional capacity at discharge: independent ambulation Overall status at discharge: patient is back to baseline - Discharge Instructions Follow Up With: Alexa Chery APN [Primary Care Provider] - (I left a message with the office on 07/17 to schedule hospital follow-up) - Diet and Activity Activity: resume usual activities as tolerated Diet: low fat, low cholesterol, low salt diet - VTE Reasons for not Prescribing Prophylaxis: Not indicated-Anticoagulated or INR therapeutic
--- NOTE | 2018-07-18 17:25 | Electrocardiograph Report ---
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
--- NOTE | 2018-07-18 17:29 | Electrocardiograph Report ---
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
--- NOTE | 2018-07-18 20:11 | Electrocardiograph Report ---
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
== END 2018-07-17 12:52 | disposition home or self-care (01) | DRG 174 ==
LOC: EMEROOARM 10:20 → ICNU 13:21 → SUATTDRO 13:21 → ICNU 13:47 → 2NNU 07-16 21:43
PROVIDERS: ADMIT Internal Medicine; ATTEND Internal Medicine